=== PATIENT | male | born 1980 ===

== ENCOUNTER 2022-02-03 15:08 | Emergency (ER) | payer MEDICARE, MEDICAID, SELFPAY ==
--- NOTE | ~2022-02-03 | XR_ITS ---
EXAMINATION: XR chest 2V Exam Date/Time: 02/03/2022 15:44 CDT HISTORY: OD on fentanyl, r/o aspiration; hx of asthma, non smoker Comparison: 12/01/2016. RESULT: Lines, tubes, and devices: None. Lungs and pleura: Clear. Low volumes with crowding in the lateral view. Cardiomediastinal silhouette: Stable. Other: No acute osseous or upper abdominal finding. IMPRESSION: No acute cardiopulmonary process. Reviewed, dictated and finalized at location K.
[2022-02-03 15:14] VITALS: BP 139/93; PULSE 115; RESP 16; TEMP 36.5; O2SAT 99
--- NOTE | 2022-02-03 15:15 | ED.OVERDOSE ---
HPI - Overdose General Chief Complaint: Overdose <SANDRA Munroe Last Filed: 02/03/22 18:55> Stated Complaint: unresponsive, narcan helped <SANDRA Munroe Last Filed: 02/03/22 18:55> Time Seen by Provider: 02/03/22 15:14 <SANDRA Munroe Last Filed: 02/03/22 18:55> Source: patient and EMS <SANDRA Munroe Last Filed: 02/03/22 18:55> Mode of arrival: EMS <SANDRA Munroe Last Filed: 02/03/22 18:55> Limitations: no limitations <SANDRA Munroe Last Filed: 02/03/22 18:55> History of Present Illness HPI Narrative: Patient is a 41 y/o male who presents to the ED via EMS with report of OD. Per EMS report, patient was reportedly found in the [facility] parking lot by a bystander unresponsive with snoring respirations. EMS administered intranasal Narcan and patient became more responsive. EMS reportedly found a fentanyl pill in the ambulance. Patient reports he took one 10 mg OxyContin today. He denies taking any other drugs. He denies using fentanyl or heroin in the past. He also states he is allergic to opioids. He has no other complaints at this time. Denies pain, dizziness, lightheadedness, difficulty breathing, nausea, vomiting. Denies SI, HI, AVH. <SANDRA Munroe Last Filed: 02/03/22 18:55> Related Data Allergies/Adverse Reactions: Allergies Allergy/AdvReac Type Severity Reaction Status Date / Time Opioids - Morphine Analogues Allergy Nausea and Verified 02/03/22 15:24 Vomiting <SANDRA Munroe Last Filed: 02/03/22 18:55> Review of Systems Review of Systems: CONSTITUTIONAL: Denies fever, chills, or sweats. EYES: Denies visual changes. CARDIOVASCULAR: Denies chest pain, palpitations, or edema. RESPIRATORY: Denies dyspnea. GASTROINTESTINAL: Denies abdominal pain, nausea, vomiting. MUSCULOSKELETAL: Denies back pain. NEUROLOGIC: Denies dizziness, lightheadedness, headache, numbness, or weakness. PSYCHIATRIC: Denies SI, HI, AVH, anxiety or depression. <Daniela Bah PA-C - Last Filed: 02/03/22 18:55> All systems reviewed & are unremarkable except as noted in HPI and below <Daniela Bah PA-C - Last Filed: 02/03/22 18:55> PMFSH Past Medical History Medical History: Medical History (Updated 02/03/22 @ 17:18 by Daniela Bah PA-C) Bipolar disorder Rheumatoid arthritis Schizophrenia <Daniela Bah PA-C - Last Filed: 02/03/22 18:55> Surgical History Surgical History: Surgical History (Updated 02/03/22 @ 16:19 by Daniela Bah PA-C) No pertinent past surgical history <Daniela Bah PA-C - Last Filed: 02/03/22 18:55> Social History Social History: Social History (Updated 02/03/22 @ 15:16 by Daniela Bah PA-C) Smoking status: Never smoker Substance use: current Substance use type: opiates <Daniela Bah PA-C - Last Filed: 02/03/22 18:55> Exam Narrative: GENERAL: Well appearing, well-nourished, non-toxic, in no acute distress. HEAD: Normocephalic, atraumatic. EYES: PERRL/EOMI, conjunctivae clear bilaterally. No nystagmus. Pupils small but reactive. NECK: Supple. No adenopathy, no masses. RESPIRATORY: Airway patent, respirations nonlabored. Clear to auscultation bilaterally, no rales, rhonchi, wheezing. CARDIOVASCULAR: Borderline tachycardic with regular rhythm without murmurs, rubs, or gallops. Peripheral pulses 2+ and equal bilaterally. ABDOMINAL: Soft, nontender, nondistended, no hepatosplenomegaly. Normoactive BS. MUSCULOSKELETAL: Moves all extremities. Strength/ROM intact without gross deformities. SKIN: Warm, dry, normal color. No rashes. NEURO: A&O X3. Speech clear. Follows commands. CN II-XII intact. Sensation grossly intact. No ataxic movements. Strength 5/5 in upper and lower extremities bilaterally. No focal deficits. PSYCHIATRIC: Appropriate mood and affect. Normal in
[2022-02-03 16:30] VITALS: BP 126/85; PULSE 100; RESP 12; O2SAT 98
[2022-02-03 17:00] VITALS: BP 128/86; PULSE 102; RESP 13; O2SAT 99
[2022-02-03 17:30] VITALS: BP 126/77; PULSE 99; RESP 15; O2SAT 98
[2022-02-03 18:00] VITALS: BP 125/80; PULSE 101; RESP 16; O2SAT 100
== END 2022-02-03 19:17 | disposition home or self-care (01) ==
LOC: ANHED 17:30
PROVIDERS: Emergency Provider Emergency Medicine; PCP Internal Medicine
DX: T40.2X1A Poisoning by other opioids, accidental (unintentional), initial encounter (principal)
CPT/HCPCS: 71046; 99283